=== PATIENT | female | born 1990 | race Two or more races ===

== ENCOUNTER 2021-07-25 13:08 | Observation (INO) | payer MEDICAID ==
[~2021-07-25] VITALS: Ht 165.1 cm; Wt 74.8 kg
[2021-07-25] MEDS ORDERED: PREN-96 PO (13:55)
== END 2021-07-25 14:20 | disposition home or self-care (01) ==
LOC: LDRP 13:08
PROVIDERS: ADMIT Obstetrics & Gynecology; ATTEND Obstetrics & Gynecology
DX: O21.2 Late vomiting of pregnancy (principal); O26.892 Other specified pregnancy related conditions, second trimester; R42 Dizziness and giddiness; Z3A.21 21 weeks gestation of pregnancy
CPT/HCPCS: 59025; 81002; G0378; G0379

== ENCOUNTER 2024-01-19 18:36 | Emergency (ER) | payer MEDICAID ==
[~2024-01-19] VITALS: Ht 165.1 cm; Wt 74.1 kg
[~2024-01-19 18:36] MED LIST: PREN-96 PO
[2024-01-19 18:49] VITALS: BP 126/67; PULSE 79; RESP 16; O2SAT 97
== END 2024-01-19 23:14 | disposition home or self-care (01) ==
LOC: ER 18:36
DX: S90.122A Contusion of left lesser toe(s) without damage to nail, initial encounter (principal); Z79.899 Other long term (current) drug therapy; W22.8XXA Striking against or struck by other objects, initial encounter; Y93.89 Activity, other specified; Y92.89 Other specified places as the place of occurrence of the external cause; Y99.8 Other external cause status
CPT/HCPCS: 73630